=== PATIENT | male | born 1960 | race Caucasian/White ===

== ENCOUNTER 2018-07-26 16:49 | Inpatient (IN) ==
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
[2018-07-26 17:40] LABS: Baso # (Auto) 0.1 th/mm3 (0.0-0.2); Baso % (Auto) 0.7 % (0.0-2.0); Eos # (Auto) 0.3 th/mm3 (0.0-0.4); Eos % (Auto) 3.5 % (0.0-4.0); Hematocrit 41.5 % (39.0-51.0); Hemoglobin 15.5 gm/dL (13.0-17.0); Lymph # (Auto) 2.1 th/mm3 (1.0-4.8); Lymph % (Auto) 24.8 % (9.0-44.0); Mean Corpuscular Hemoglobin 35.3 pg (27.0-34.0); Mean Corpuscular Volume 94.5 fL (80.0-100.0); Mono # (Auto) 0.8 th/mm3 (0.0-0.9); Mono % (Auto) 9.3 % (0.0-8.0); Neut # (Auto) 5.2 th/mm3 (1.8-7.7); Neut % (Auto) 61.7 % (16.0-70.0); Platelet Count 214 th/mm3 (150-450); Red Blood Count 4.39 mil/mm3 (4.50-5.90); Red Cell Distribution Width 15.3 % (11.6-17.2); White Blood Count 8.4 th/mm3 (4.0-11.0)
[2018-07-26 17:46] LABS: Mean Corpuscular HGB Conc 37.4 % (32.0-36.0)
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
[2018-07-26] MEDS ORDERED: levETIRAcetam 1000mg/100mL Inj 100 ML IV.SIG ONE (17:57)
[2018-07-26] MEDS ORDERED: Multivitamin Inj 10 ML, Thiamine Inj 100 MG, Folic Acid Inj 1 MG in Sodium Chlor 0.9% I... IV.SIG SCH (18:00)
[2018-07-26] MEDS ORDERED: Pantoprazole Inj 40 MG Vial IV.PUSH SCH (18:00)
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
[2018-07-26 18:22] LABS: Activated Partial Thrombo Time 29.9 sec (23.4-31.7); Prothrombin Time 10.5 sec (9.8-11.6)
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
[2018-07-26 18:39] LABS: Alanine Aminotransferase 18 U/L (12-78); Albumin 3.2 g/dL (3.4-5.0); Anion Gap 9 meq/L (5-15); Aspartate Aminotransferase 21 U/L (15-37); Blood Urea Nitrogen 13 mg/dL (7-18); Calcium 7.8 mg/dL (8.5-10.1); Carbon Dioxide 27.6 meq/L (21.0-32.0); Chloride 99 meq/L (98-107); Glomerular Filtration Rate 56 mL/min (>89); Glucose,Random 89 mg/dL (74-106); Potassium 3.3 meq/L (3.5-5.1); Sodium 136 meq/L (136-145)
[2018-07-26 18:41] LABS: Alkaline Phosphatase 94 U/L (45-117); Total Protein 7.2 g/dL (6.4-8.2)
[2018-07-26 18:42] LABS: Alcohol 231 mg/dL (0-5)
[2018-07-26] MEDS: Sod Chloride 0.9% Inj 1,000 ML IV.CONT SCH (19:26)
[2018-07-26 19:54] LABS: Amphetamine Screen,Urine Neg (Neg); Barbiturate Screen,Urine Neg (Neg); Cannabinoid Screen,Urine Neg (Neg); Cocaine Screen,Urine Neg (Neg)
[2018-07-26 20:21] LABS: Opiate Screen,Urine Neg (Neg)
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
[2018-07-26] MEDS ORDERED: Docusate Sodium 100 MG Capsule PO SCH (21:00)
[2018-07-26] MEDS: Morphine Sulfate Inj 2 MG/ML Vial IV.PUSH PRN (21:05)
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
[2018-07-27] MEDS ORDERED: Chlorhexidine Gluconate 2% 1 Pack (2 Cloths) TOPICAL SCH (04:00)
[2018-07-27] MEDS ORDERED: Chlorhexidine Gluconate 2% 1 Pack (2 Cloths) TOPICAL PRN (04:00)
[2018-07-27] MEDS: Morphine Sulfate Inj 2 MG/ML Vial IV.PUSH PRN (06:00)
[2018-07-27] MEDS: Sod Chloride 0.9% Inj 1,000 ML IV.CONT SCH (06:00)
[2018-07-27 06:06] VITALS: O2SAT 92
[2018-07-27] MEDS ORDERED: Acetaminophen 325 MG Tablet PO PRN (06:20)
[2018-07-27] MEDS ORDERED: Morphine Inj 4 MG/ML Vial IV.PUSH PRN (06:22)
[2018-07-27] MEDS ORDERED: levETIRAcetam 500 MG Tablet PO SCH (09:00)
[2018-07-27] MEDS ORDERED: Famotidine 20 MG Tablet PO SCH (09:00)
[2018-07-27] MEDS ORDERED: Senna/Docusate Sodium 8.6/50 MG Tablet PO SCH (09:00)
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
--- NOTE | 2018-07-27 11:34 | P.PNNS ---
Subjective Interval history: July 27, 2018 The patient has remained stable overnight. He is complaining of a headache. He is sitting up in a chair eating breakfast he denies any difficulty with his thinking or memory or vision or speech. He denies any weakness or numbness in his extremities. He has ambulated in the [place]. Physical Exam Vital signs: Vital Signs 07/26/18 17:05 07/26/18 17:22 07/26/18 17:28 Temperature Pulse Rate 105 H 95 H Respiratory Rate 20 20 Blood Pressure 138/86 138/86 Pulse Oximetry 99 98 99 07/26/18 17:30 07/26/18 18:31 07/26/18 19:40 Temperature Pulse Rate 95 H 94 H 99 H Respiratory Rate 20 20 Blood Pressure 134/84 131/90 Pulse Oximetry 95 96 07/26/18 20:00 07/26/18 20:42 07/26/18 21:00 Temperature Pulse Rate 86 98 H 96 H Respiratory Rate 30 H Blood Pressure 99/58 L 132/80 Pulse Oximetry 93 L 93 L 07/26/18 22:00 07/26/18 23:00 07/26/18 23:11 Temperature Pulse Rate 89 91 H 89 Respiratory Rate 21 21 21 Blood Pressure 99/58 L 99/58 L 99/58 L Pulse Oximetry 90 L 90 L 90 L 07/27/18 00:00 07/27/18 00:56 07/27/18 00:59 Temperature 98.7 F Pulse Rate 92 H 94 H 94 H Respiratory Rate 22 23 23 Blood Pressure 99/55 L 112/71 Pulse Oximetry 90 L 90 L 90 L 07/27/18 01:00 07/27/18 02:00 07/27/18 03:00 Temperature 98.7 F Pulse Rate 94 H 99 H 94 H Respiratory Rate 28 H 9 L 23 Blood Pressure 108/68 113/73 119/77 Pulse Oximetry 90 L 91 L 91 L 07/27/18 04:00 07/27/18 05:00 07/27/18 06:00 Temperature 98.7 F Pulse Rate 92 H 94 H 98 H Respiratory Rate 28 H 27 H 25 H Blood Pressure 123/84 126/80 122/83 Pulse Oximetry 93 L 88 L 92 L 07/27/18 07:39 07/27/18 08:42 Temperature Pulse Rate Respiratory Rate 26 H Blood Pressure Pulse Oximetry 92 L Intake & Output 07/26/18 07/27/18 07/27/18 18:59 06:59 18:59 Intake Total 1616.2 / 1616.2 Output Total 1000 / 1000 Balance 616.2 / 616.2 Weight 68.039 kg 58.8 kg Intake: IV 1616.2 / 1616.2 NS Inj 1,000 ML @ 100 mls/hr IV 1000 / 1000 .CONT .Q10H [facility] Rx#:[id number] MVI-12 Inj 10 ML Thiamine Inj 511.2 / 511.2 100 MG Folvite Inj 1 MG In NS Inj 500 ML @ 125 mls/hr IV.SIG Q24H [facility] Rx#:[id number] Keppra 1000 mg/100 mL Premix 0 / 0 100 ML @ 400 mls/hr IV.SIG ONCE ONE Rx#:[id number] Keppra Inj 500 MG In NS Inj 100 105 / 105 ML @ 400 mls/hr IV.SIG Q12H [facility] Rx#:[id number] Oral 0 / 0 Output: Urine 1000 / 1000 Other: Date of Last Bowel Movement 07/26/18 # Bowel Movements 0 - Routine Neurological Exam July 27, 2018 On neurological examination the patient is awake and alert. He is oriented by 3. Cognitive function is grossly intact. His speech is fluent. Cranial nerve testing 2 through 12 is grossly intact. There were no focal motor nor sensory deficits. The patient remains continent. Assessment and Plan - Plan ICU / Trauma Keppra 1gm IV load than 500mg BID Repeat CT in AM Spine cleared PT/OT mobilize July 27, 2018 The patient appears to be stable from a neurosurgical perspective. A follow-up CT scan of the head is been ordered and is pending. Certainly conservative neurosurgical approach is warranted. His [place] Coma Scale is 15. He is neurologically intact. He certainly can be mobilized from a neurosurgical perspective and from a neurosurgical perspective probably transferred to the floor. Neurosurgery will follow.
--- NOTE | 2018-07-27 11:50 | ECG ---
Date Performed: 07/26/2018 Time Performed: 18:14:52 PTAGE: 89 years EKG: SINUS TACHYCARDIA POSSIBLE LEFT ATRIAL ENLARGEMENT ABNORMAL RHYTHM ECG NO PREVIOUS TRACING DOCTOR: Robin Scott Interpretating Date/Time 07/27/2018 11:48:10
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
[2018-07-27 14:41] VITALS: TEMP 98.6
[2018-07-27 15:36] VITALS: RESP 23
[2018-07-27 16:42] VITALS: BP 158/98; PULSE 76
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
== END 2018-07-27 17:25 | disposition home or self-care (01) ==
LOC: NEPE 16:49 → NEDA 17:59 → EDBD 17:59 → N03 20:25
PROVIDERS: ADMIT Surgery; ATTEND Surgery